=== PATIENT | male | born 1945 | race Hispanic/Latino ===

== ENCOUNTER 2016-09-18 08:27 | Day surgery (SDC) | payer MEDICARE, BC ==
[2016-09-15 07:58] VITALS: BMI 31.6
[2016-09-18 08:59] LABS: ADD MANUAL DIFF? NO
[2016-09-18 09:03] LABS: BASO # 0.02 K/mm3 (0.0-2.0); BASO % 0.2 % (0.0-3.0); EOS # 0.1 (0.0-0.7); EOS % 0.6 % (1.5-5.0); GRAN # 5.98 (1.4-6.5); GRAN % 70.4 % (50.0-68.0); LYMPH # 1.8 (1.2-3.4); LYMPH % 21.1 % (22.0-35.0); MEAN CELL VOLUME 89.2 fL (80.0-105.0); MEAN CORPUSCULAR HEMOGLOBIN 31.2 pg (25.0-35.0); MEAN PLATELET VOLUME 8.8 fl (7.0-11.0); MONO # 0.7 (0.1-0.6); MONO % 7.7 % (1.0-6.0); PLATELET COUNT 251 10^3/uL (120.0-450.0); RED CELL DISTRIBUTION WIDTH 12.8 % (11.5-14.5); WHITE BLOOD COUNT 8.5 10^3/ul (4.5-11.0)
[2016-09-18 09:12] LABS: BLOOD UREA NITROGEN 14 mg/dL (7-21); CALCIUM 9.6 mg/dL (8.4-10.5); CARBON DIOXIDE 28 mmol/L (21-33); CHLORIDE 102 mmol/L (95-110); GFR AFRICAN-AMERICAN > 60; GLUCOSE,RANDOM 102 mg/dL (70-110); POTASSIUM 3.9 mmol/L (3.6-5.0); SODIUM 140 mmol/L (132-148)
[2016-09-18 09:15] LABS: INR 0.99 (0.93-1.08); PARTIAL THROMBOPLASTIN TIME 27.3 Seconds (23.7-30.8)
--- NOTE | 2016-09-18 10:26 | CP.SDSHP ---
Same Day Surgery H & P - History Proposed Procedure: Cat scan guided abdominal biopsy Pre-Op Diagnosis: Lymphoma - Previous Medical/Surgical History Misc: Other (Hyperlipidemia,Gerd,history of disc degeneration,colon polyp, diverticulosis,BPH,Skin Ca) Pain: 0. No Pain Comments: Recent Cat scan showed increase in the size of lymph nodes in the abdomen Previous Surgical History: Umbilical hernioraphy. L inguinal hernioraphy. Excision of skin lesion on the back. Colonoscopy. Cystoscopy a few times. - Allergies Allergies: Allergies latex Allergy (Intermediate, Verified 09/15/16 07:58) RASH levofloxacin [From Levaquin] Adverse Reaction (Severe, Verified 09/15/16 07:58) SHORTNESS OF BREATH - Physical Exam General Appearance: Well nourished male Vital Signs: Vital Signs 09/18/16 09:14 Temperature 98.1 F Pulse Rate 113 H Respiratory 20 Rate Blood Pressure 135/88 O2 Sat by Pulse 97 Oximetry Mental Status: Alert & Oriented x3 Neuro: WNL Heart: WNL Lungs: WNL - {Optional Preform as Required} Abdomen: WNL - Impression Impression: Lymphoma - Date & Time Date: 09/18/16 Time: 10:25 Short Stay Discharge - Short Stay Discharge Admitting Diagnosis/Reason for Visit: LYMPHOMA C85.9 Disposition: HOME/ ROUTINE Referrals: Jax Barker MD [Primary Care Provider] -
[2016-09-18] MEDS ORDERED: Midazolam 2 MG/2 ML VIAL ONE (11:38)
[2016-09-18] MEDS ORDERED: Oxycodone/Acetaminophen 5/325 mg Tab PO PRN (12:39)
[2016-09-18] MEDS ORDERED: Sodium Chloride 0.45% 1,000 ML IV SCH (12:45)
[2016-09-18 13:05] VITALS: O2SAT 99
[2016-09-18 14:04] VITALS: BP 127/69; PULSE 92; RESP 20; TEMP 98.3
--- NOTE | 2016-09-18 18:21 | CT ---
PROCEDURE: CT guided mesenteric lymph node biopsy. HISTORY: Enlarge left upper quadrant mesenteric lymph nodes. Evaluate for malignancy. PHYSICIAN(S): Michele Iglesias MD. TECHNIQUE: The relative risks and indications of the procedure were explained to the patient and consent obtained. The patient was placed supine on the CT scanner and preliminary images through the upper abdomen obtained. Conscious sedation and monitoring were provided throughout the procedure by a nurse. There are small lymph nodes and mesenteric infiltration in the left upper quadrant. The largest lymph node measures 2.5 cm and was selected for biopsy.. A left anterior approach was selected and the area prepped and draped in the usual sterile fashion. 1% Xylocaine was used to anesthetize the skin and soft tissues. A 17-gauge guiding needle was advanced into the 2.5 cm left upper quadrant mesenteric lymph node. Its position was confirmed with CT. Using coaxial technique, multiple core biopsies were obtained. The postprocedure images show no evidence of significant hemorrhage. IMPRESSION: 1. CT-guided left upper quadrant mesenteric lymph node biopsy as described above. Specimens were sent to histology and flow cytometry.
== END 2016-09-18 15:25 | disposition home or self-care (01) ==
LOC: SDS 08:27
PROVIDERS: ATTEND Radiology Vascular & Interventional Radiology
DX: C85.13 Unspecified B-cell lymphoma, intra-abdominal lymph nodes (principal); C82.93 Follicular lymphoma, unspecified, intra-abdominal lymph nodes; E78.5 Hyperlipidemia, unspecified; K21.9 Gastro-esophageal reflux disease without esophagitis; N40.0 Benign prostatic hyperplasia without lower urinary tract symptoms; K57.90 Diverticulosis of intestine, part unspecified, without perforation or abscess without bleeding; Z86.010 Personal history of colon polyps; Z85.828 Personal history of other malignant neoplasm of skin; Z88.1 Allergy status to other antibiotic agents; Z91.040 Latex allergy status
CPT/HCPCS: 36415; 49180; 77012; 80048; 85025; 85610; 85730; 88305; J2250; J2405; J3010; J7030